=== PATIENT | female | born 1940 | race African-American/Black ===

== ENCOUNTER 2017-03-09 11:19 | Inpatient (IN) ==
[2017-03-09 15:55] LABS: Basophils % 0.1 % (0.0-0.8); Eosinophils # 0.1 10*3/uL (0.0-0.87); Eosinophils % 0.6 % (0.00-10.9); Hematocrit 20.3 VOL% (35.7-47.0); Immature Granulocytes % 0.8 %; Lymphocytes # 1.6 10*3/uL (1.4-4.0); Lymphocytes % 13.2 % (21.3-54.2); Mean Corpuscular Hemoglobin 30 PG (27-34); Mean Corpuscular Volume 95.3 FL (87-102); Mean Platelet Volume 10.6 FL (9.6-12.0); Monocytes % 8.5 % (1.7-12.7); Neutrophils # 9.3 10*3/uL (1.4-7.4); Neutrophils % 76.8 % (38.7-73.9); Platelet Count 422 T/CUMM (130-400); Red Blood Count 2.13 MC/CUMM (3.8-5.5); Red Cell Distribution Width 15.5 % (9.3-17.3); White Blood Count 12.1 T/CUMM (4-12)
[2017-03-09 16:01] LABS: Hemoglobin 6.3 GM/DL (12.0-16.0)
[2017-03-09 16:12] LABS: Alanine Aminotransferase 19 U/L (13-56); Albumin 2.7 G/DL (3.4-5.0); Alkaline Phosphatase 85 U/L (45-117); Aspartate Amino Transferase 17 U/L (0-37); Bilirubin,Total < 0.39 MG/DL (0.2-1.0); Blood Urea Nitrogen 23 MG/DL (7-18); Calcium 8.9 MG/DL (8.5-10.1); Glucose 92 MG/DL (74-106); Osmolality,Calculated 282.4 MOS/KG (273-304); Potassium 4.9 MMOL/L (3.5-5.1); Sodium 140 MMOL/L (136-145); Total Protein 7.9 G/DL (6.4-8.3)
[2017-03-09] MEDS ORDERED: DOCUSATE SODIUM 100 MG CAPSULE PO PRN (17:48)
[2017-03-09] MEDS ORDERED: GLUCAGON 1 MG VIAL IM PRN (17:48)
[2017-03-09] MEDS ORDERED: ONDANSETRON 4 MG/2 ML VIAL IV PRN (17:48)
[2017-03-09] MEDS ORDERED: DEXTROSE 50% 25 GM/50 ML VIAL IV PRN (17:48)
[2017-03-09] MEDS ORDERED: SODIUM CHLORIDE 0.9% 1,000 ML IV PRN (20:20)
[2017-03-09] MEDS: INSULIN REGULAR 100 UNIT/ML SUBCUT SCH (21:59)
[2017-03-09] MEDS: ACETAMINOPHEN 325 MG TABLET PO PRN (22:23)
[2017-03-09] MEDS: cefTRIAXone 1,000 MG in SYRINGE 1 EACH IV SCH (22:24)
[2017-03-10 08:28] LABS: Basophils % 0.2 % (0.0-0.8); Eosinophils # 0.1 10*3/uL (0.0-0.87); Eosinophils % 0.8 % (0.00-10.9); Hematocrit 23.6 VOL% (35.7-47.0); Immature Granulocytes % 0.7 %; Immature Granulocytes Absolute 0.07 #; Lymphocytes # 1.8 10*3/uL (1.4-4.0); Lymphocytes % 16.5 % (21.3-54.2); Mean Corpuscular HGB Conc 32.6 GM/DL (32-36); Mean Corpuscular Hemoglobin 30 PG (27-34); Mean Corpuscular Volume 90.8 FL (87-102); Mean Platelet Volume 10.6 FL (9.6-12.0); Monocytes # 1.1 10*3/uL (0.11-0.8); Monocytes % 9.8 % (1.7-12.7); Neutrophils # 7.7 10*3/uL (1.4-7.4); Platelet Count 355 T/CUMM (130-400); Red Cell Distribution Width 16.3 % (9.3-17.3); White Blood Count 10.7 T/CUMM (4-12)
[2017-03-10] MEDS ORDERED: ceFAZolin 2,000 MG in PREMIX 1 EACH IV ONE (08:32)
[2017-03-10] MEDS ORDERED: CHLORHEXIDINE 4% SOLN 118 ML BOTTLE TOP ONE (08:41)
[2017-03-10 08:50] LABS: Hemoglobin 7.7 GM/DL (12.0-16.0)
[2017-03-10 08:51] LABS: Calcium 8.1 MG/DL (8.5-10.1); Osmolality,Calculated 281.1 MOS/KG (273-304); Potassium 4.6 MMOL/L (3.5-5.1)
[2017-03-10 08:52] LABS: Calcium 8.2 MG/DL (8.5-10.1); Magnesium 1.7 MG/DL (1.8-2.4); Osmolality,Calculated 282.1 MOS/KG (273-304); Potassium 4.6 MMOL/L (3.5-5.1)
[2017-03-10 09:51] LABS: INR 1.1; PT Patient Result 11.2 SECS; Partial Thromboplastin Time 30.8 SECS (0-40)
[2017-03-10] MEDS: ASPIRIN EC 325 MG TABLET PO SCH (10:25)
[2017-03-10] MEDS: SUCRALFATE 1 GM TABLET PO SCH ×3 (10:28→17:23)
[2017-03-10] MEDS: INSULIN REGULAR 100 UNIT/ML SUBCUT SCH ×4 (10:29→21:09)
[2017-03-10] MEDS: PANTOPRAZOLE 40 MG TABLET PO SCH (10:31)
[2017-03-10] MEDS: BACITRACIN OINT 0.9 GM PACK TOP SCH (16:30)
[2017-03-10] MEDS: ACETAMINOPHEN 325 MG TABLET PO PRN (17:24)
[2017-03-10] MEDS: cefTRIAXone 1,000 MG in SYRINGE 1 EACH IV SCH (21:05)
[2017-03-11 06:02] LABS: Basophils % 0.2 % (0.0-0.8); Eosinophils # 0.1 10*3/uL (0.0-0.87); Eosinophils % 1.1 % (0.00-10.9); Hematocrit 24.2 VOL% (35.7-47.0); Hemoglobin 7.7 GM/DL (12.0-16.0); Immature Granulocytes % 0.6 %; Immature Granulocytes Absolute 0.06 #; Lymphocytes # 1.9 10*3/uL (1.4-4.0); Mean Corpuscular HGB Conc 31.8 GM/DL (32-36); Mean Corpuscular Hemoglobin 29 PG (27-34); Monocytes # 0.9 10*3/uL (0.11-0.8); Monocytes % 9.1 % (1.7-12.7); Neutrophils # 6.6 10*3/uL (1.4-7.4); Platelet Count 347 T/CUMM (130-400); Red Blood Count 2.63 MC/CUMM (3.8-5.5); White Blood Count 9.6 T/CUMM (4-12)
[2017-03-11 06:29] LABS: Calcium 8.2 MG/DL (8.5-10.1); Magnesium 1.7 MG/DL (1.8-2.4); Potassium 4.7 MMOL/L (3.5-5.1)
[2017-03-11] MEDS ORDERED: ceFAZolin 2,000 MG in PREMIX 1 EACH IV ONE (07:00)
[2017-03-11] MEDS: INSULIN REGULAR 100 UNIT/ML SUBCUT SCH ×4 (07:53→21:25)
[2017-03-11] MEDS: BACITRACIN OINT 0.9 GM PACK TOP SCH (10:12)
[2017-03-11] MEDS: ASPIRIN EC 325 MG TABLET PO SCH (10:12)
[2017-03-11] MEDS: PANTOPRAZOLE 40 MG TABLET PO SCH (10:12)
[2017-03-11] MEDS: SUCRALFATE 1 GM TABLET PO SCH ×3 (10:12→17:08)
[2017-03-11] MEDS ORDERED: SKIN HEALING OINT (AQUAPHOR) 50 GM TUBE TOP PRN (11:28)
[2017-03-11] MEDS ORDERED: CHLORHEXIDINE 4% SOLN 118 ML BOTTLE TOP ONE (11:28)
[2017-03-11] MEDS ORDERED: HYDROmorphone 2 MG/1 ML VIAL IV PRN (11:30)
[2017-03-11] MEDS ORDERED: fentaNYL 100 MCG/2 ML VIAL ONE (12:10)
[2017-03-11] MEDS ORDERED: SEVOFLURANE 1 UNIT/15 MINUTE INH ONE (12:10)
[2017-03-11] MEDS ORDERED: MIDAZOLAM 2 MG/2 ML VIAL ONE (12:10)
[2017-03-11] MEDS ORDERED: ONDANSETRON 4 MG/2 ML VIAL ONE (12:10)
[2017-03-11] MEDS ORDERED: PROPOFOL 200 MG/20 ML VIAL IV ONE (12:10)
[2017-03-11] MEDS ORDERED: MAGNESIUM SULF RIDER 2 GM in PREMIX 1 EACH IV ONE (14:17)
[2017-03-11] MEDS ORDERED: ZINC OXIDE PASTE 113 GM TUBE TOP PRN (14:20)
[2017-03-11] MEDS: SODIUM CHLORIDE 0.9% 1,000 ML IV SCH (14:51)
[2017-03-11] MEDS: ACETAMINOPHEN 325 MG TABLET PO PRN (17:08)
[2017-03-11] MEDS: ceFAZolin 2,000 MG in PREMIX 1 EACH IV SCH (17:09)
[2017-03-11] MEDS: oxyCODONE/ACETAMINOPHEN 5-325 MG TABLET PO PRN (21:26)
[2017-03-11] MEDS: ACETYLCYSTEINE 600 MG CAPSULE PO SCH (21:26)
[2017-03-11] MEDS: DOCUSATE SODIUM 100 MG CAPSULE PO SCH (21:26)
[2017-03-11] MEDS: cefTRIAXone 1,000 MG in SYRINGE 1 EACH IV SCH (21:27)
[2017-03-12] MEDS: SODIUM CHLORIDE 0.9% 1,000 ML IV SCH (00:10)
[2017-03-12] MEDS ORDERED: ceFAZolin 2,000 MG in PREMIX 1 EACH IV SCH (04:30)
[2017-03-12] MEDS: ceFAZolin 2,000 MG in PREMIX 1 EACH IV SCH (04:41)
[2017-03-12 05:47] LABS: Basophils % 0.2 % (0.0-0.8); Eosinophils # 0.2 10*3/uL (0.0-0.87); Eosinophils % 1.7 % (0.00-10.9); Hematocrit 24.7 VOL% (35.7-47.0); Hemoglobin 7.7 GM/DL (12.0-16.0); Immature Granulocytes % 0.7 %; Immature Granulocytes Absolute 0.06 #; Lymphocytes # 1.5 10*3/uL (1.4-4.0); Lymphocytes % 17.5 % (21.3-54.2); Mean Corpuscular HGB Conc 31.2 GM/DL (32-36); Mean Corpuscular Hemoglobin 29 PG (27-34); Mean Corpuscular Volume 93.9 FL (87-102); Mean Platelet Volume 9.8 FL (9.6-12.0); Monocytes # 0.7 10*3/uL (0.11-0.8); Monocytes % 8.2 % (1.7-12.7); Neutrophils # 6.2 10*3/uL (1.4-7.4); Neutrophils % 71.7 % (38.7-73.9); Platelet Count 318 T/CUMM (130-400); Red Blood Count 2.63 MC/CUMM (3.8-5.5); Red Cell Distribution Width 15.7 % (9.3-17.3); White Blood Count 8.7 T/CUMM (4-12)
[2017-03-12 06:20] LABS: Calcium 7.7 MG/DL (8.5-10.1); Magnesium 2.4 MG/DL (1.8-2.4); Potassium 4.7 MMOL/L (3.5-5.1)
[2017-03-12] MEDS: INSULIN REGULAR 100 UNIT/ML SUBCUT SCH ×2 (07:13→12:08)
[2017-03-12] MEDS ORDERED: ENOXAPARIN 40 MG/0.4 ML SYRINGE SUBCUT SCH (08:00)
[2017-03-12 08:32] VITALS: BP 138/58
[2017-03-12] MEDS ORDERED: GLIMEPIRIDE 2 MG TABLET PO SCH (09:00)
[2017-03-12] MEDS ORDERED: LISINOPRIL 20 MG TABLET PO SCH (09:00)
[2017-03-12] MEDS: SUCRALFATE 1 GM TABLET PO SCH ×2 (09:58→11:59)
[2017-03-12] MEDS: ASPIRIN EC 325 MG TABLET PO SCH (09:59)
[2017-03-12] MEDS: ACETYLCYSTEINE 600 MG CAPSULE PO SCH (09:59)
[2017-03-12] MEDS: PANTOPRAZOLE 40 MG TABLET PO SCH (09:59)
[2017-03-12] MEDS: DOCUSATE SODIUM 100 MG CAPSULE PO SCH (09:59)
[2017-03-12] MEDS: BACITRACIN OINT 0.9 GM PACK TOP SCH (14:30)
[2017-03-12] MEDS: oxyCODONE/ACETAMINOPHEN 5-325 MG TABLET PO PRN (14:53)
== END 2017-03-12 15:15 | disposition swing bed (61) | DRG 300 ==
LOC: N.ED 11:19 → N.EDINP 16:56 → N.3E 19:31
PROVIDERS: ADMIT Internal Medicine; ATTEND Internal Medicine

== ENCOUNTER 2018-12-11 20:45 | Inpatient (IN) ==
[2018-12-11 22:19] LABS: Basophils % 0.2 % (0.0-0.8); Hematocrit 28.2 VOL% (35.7-47.0); Hemoglobin 8.5 GM/DL (12.0-16.0); Immature Granulocytes % 1.1 %; Immature Granulocytes Absolute 0.18 #; Lymphocytes # 0.5 10*3/uL (1.4-4.0); Lymphocytes % 2.9 % (21.3-54.2); Mean Corpuscular HGB Conc 30.1 GM/DL (32-36); Mean Corpuscular Volume 95.6 FL (87-102); Mean Platelet Volume 10.7 FL (9.6-12.0); Monocytes % 4.8 % (1.7-12.7); Platelet Count 197 T/CUMM (130-400); Red Blood Count 2.95 MC/CUMM (3.8-5.5); Red Cell Distribution Width 16.1 % (9.3-17.3); White Blood Count 16.3 T/CUMM (4-12)
[2018-12-11 22:40] LABS: Alanine Aminotransferase 14 U/L (13-56); Albumin 2.9 G/DL (3.4-5.0); Alkaline Phosphatase 101 U/L (45-117); Aspartate Amino Transferase 30 U/L (0-37); Blood Urea Nitrogen 25 MG/DL (7-18); Calcium 8.5 MG/DL (8.5-10.1); Estimated Glom Filtration Rate 33 ML/MIN; Glucose 137 MG/DL (74-106); Osmolality,Calculated 284.4 MOS/KG (273-304); Total Protein 7.7 G/DL (6.4-8.3)
[2018-12-11] MEDS ORDERED: VANCOMYCIN INJ 1,000 MG in SODIUM CHLORIDE 0.9% 250 ML IV STA ×2 (23:11→23:15)
[2018-12-11] MEDS ORDERED: CEFEPIME 2,000 MG in SODIUM CHLORIDE 0.9% 100 ML IV STA ×2 (23:11→23:15)
[2018-12-11] MEDS ORDERED: SODIUM CHLORIDE 0.9% 1,000 ML IV STA (23:12)
[2018-12-11 23:24] LABS: Anisocytosis 1+; Eosinophils 2 % (0-10); Hypochromasia 1+; Lymphocytes 2 % (20-55); Macrocytosis Slight; Microcytosis Slight; Platelet Estimate Adequate; Polychromasia Slight; Segmented Neutrophils 91 % (50-85); Total Cells Counted 100
[2018-12-11] MEDS ORDERED: ONDANSETRON 4 MG/2 ML VIAL IV STA (23:28)
[2018-12-12] MEDS ORDERED: diphenhydrAMINE CAP 25 MG CAPSULE PO PRN (00:27)
[2018-12-12] MEDS ORDERED: GLUCAGON 1 MG VIAL IM PRN (00:27)
[2018-12-12] MEDS ORDERED: DEXTROSE 50% 25 GM/50 ML VIAL IV PRN (00:27)
[2018-12-12] MEDS ORDERED: ACETAMINOPHEN 325 MG TABLET PO PRN (00:27)
[2018-12-12] MEDS ORDERED: NICOTINE 21 MG/24 HR PATCH TRANSDERM PRN (00:27)
[2018-12-12] MEDS ORDERED: ONDANSETRON 4 MG/2 ML VIAL IV PRN (00:27)
[2018-12-12] MEDS ORDERED: PROMETHAZINE 25 MG/1 ML VIAL IM PRN (00:27)
[2018-12-12] MEDS ORDERED: MORPHINE 4 MG/1 ML VIAL IV PRN (00:27)
[2018-12-12] MEDS ORDERED: SODIUM CHLORIDE 0.9% 1,000 ML IV SCH (00:30)
[2018-12-12] MEDS ORDERED: PIPERACILLIN/TAZOBACTAM 3,375 MG in SODIUM CHLORIDE 0.9% 100 ML IV SCH (01:30)
[2018-12-12 01:54] LABS: Basophils % 0.2 % (0.0-0.8); Hemoglobin 8.3 GM/DL (12.0-16.0); Immature Granulocytes % 1.5 %; Immature Granulocytes Absolute 0.26 #; Lymphocytes # 0.5 10*3/uL (1.4-4.0); Lymphocytes % 2.8 % (21.3-54.2); Mean Corpuscular HGB Conc 29.6 GM/DL (32-36); Mean Corpuscular Volume 98.6 FL (87-102); Mean Platelet Volume 11.7 FL (9.6-12.0); Neutrophils % 91.5 % (38.7-73.9); Platelet Count 142 T/CUMM (130-400); Red Blood Count 2.84 MC/CUMM (3.8-5.5); Red Cell Distribution Width 16.2 % (9.3-17.3); White Blood Count 17.9 T/CUMM (4-12)
[2018-12-12 02:12] LABS: Albumin 2.7 G/DL (3.4-5.0); Bilirubin,Direct 0.82 MG/DL (0.0-0.20); Bilirubin,Indirect 0.8 MG/DL (0.0-1.0); Bilirubin,Total 1.6 MG/DL (0.2-1.0); Total Protein 7.4 G/DL (6.4-8.3)
[2018-12-12 02:13] LABS: Risk Ratio 2.36; VLDL CHOLESTEROL 15.4 MG/DL
[2018-12-12 02:35] LABS: Albumin 2.7 G/DL (3.4-5.0); Bilirubin,Total 1.8 MG/DL (0.2-1.0); Calcium 7.9 MG/DL (8.5-10.1); Total Protein 7.3 G/DL (6.4-8.3)
[2018-12-12 02:41] LABS: Anisocytosis 1+; Hypochromasia 1+; Lymphocytes 2 % (20-55); Microcytosis 1+; Segmented Neutrophils 95 % (50-85); Total Cells Counted 100
[2018-12-12 02:42] LABS: Acanthocytes Few; Ovalocytes Slight; Platelet Estimate Adequate
[2018-12-12] MEDS: INSULIN REGULAR 100 UNIT/ML SUBCUT SCH ×5 (02:43→20:28)
[2018-12-12] MEDS ORDERED: IBUPROFEN 400 MG TABLET PO PRN (03:26)
[2018-12-12 03:45] LABS: Hepatitis B Core IgM Quant 0.09 Index; Hepatitis B Surface Ag Quant < 0.10 Index; Hepatitis B Surface Ag Result Negative (Negative); Hepatitis C Virus Ab Quant 0.09 Index; Hepatitis C Virus Ab Result Negative (Negative)
[2018-12-12 06:48] LABS: Amorphous Crystals,Urine Few /HPF (Few); Apearance,Urine CLOUDY (Clear); Bilirubin,Urine Negative (Negative); Blood, Urine Large mg/dL (Negative); Glucose,Urine (UA) Negative (Negative); Ketones,Urine 5 mg/dL (Negative); Mucus,Urine Occasional /LPF (Occasional); Nitrite,Urine Negative (Negative); Protein,Urine 100 MG/DL; RBC,Urine 495 /HPF (0-4); Urine Color Amber (Yellow); Urine Specific Gravity 1.017 (1.001-1.035); Urine Urobilinogen < 2.0 EU/DL (0.2-1.0); WBC,Urine 125 /HPF (0-6)
[2018-12-12] MEDS ORDERED: LACTATED RINGERS 1,000 ML IV ONE (08:49)
[2018-12-12] MEDS ORDERED: SKIN HEALING OINT (AQUAPHOR) 50 GM TUBE TOP PRN (09:18)
[2018-12-12] MEDS: SODIUM BICARB INJ 50 MEQ in SODIUM CHLORIDE 0.45% 1,000 ML IV SCH ×2 (11:06→16:00)
[2018-12-12] MEDS: ENOXAPARIN 30 MG/0.3 ML SYRINGE SUBCUT SCH (12:45)
[2018-12-12] MEDS: CEFEPIME 1,000 MG in SODIUM CHLORIDE 0.9% 100 ML IV SCH ×2 (15:10→22:43)
[2018-12-13] MEDS: SODIUM BICARB INJ 50 MEQ in SODIUM CHLORIDE 0.45% 1,000 ML IV SCH ×2 (05:01→08:06)
[2018-12-13 06:12] LABS: Calcium 8.3 MG/DL (8.5-10.1); Osmolality,Calculated 289.3 MOS/KG (273-304)
[2018-12-13 06:16] LABS: Albumin 2.3 G/DL (3.4-5.0); Bilirubin,Direct 0.28 MG/DL (0.0-0.20); Bilirubin,Indirect 0.9 MG/DL (0.0-1.0); Bilirubin,Total 1.2 MG/DL (0.2-1.0); Total Protein 6.7 G/DL (6.4-8.3)
[2018-12-13] MEDS: CEFEPIME 1,000 MG in SODIUM CHLORIDE 0.9% 100 ML IV SCH ×2 (07:11→14:01)
[2018-12-13 07:35] LABS: Basophils % 0.2 % (0.0-0.8); Eosinophils % 0.1 % (0.00-10.9); Hematocrit 26.3 VOL% (35.7-47.0); Hemoglobin 8.1 GM/DL (12.0-16.0); Immature Granulocytes % 1.5 %; Immature Granulocytes Absolute 0.33 #; Lymphocytes # 0.8 10*3/uL (1.4-4.0); Lymphocytes % 3.8 % (21.3-54.2); Mean Corpuscular HGB Conc 30.8 GM/DL (32-36); Mean Corpuscular Volume 94.6 FL (87-102); Mean Platelet Volume 10.9 FL (9.6-12.0); Monocytes % 6.6 % (1.7-12.7); Neutrophils % 87.8 % (38.7-73.9); Platelet Count 173 T/CUMM (130-400); Red Blood Count 2.78 MC/CUMM (3.8-5.5); Red Cell Distribution Width 16.3 % (9.3-17.3); White Blood Count 21.5 T/CUMM (4-12)
[2018-12-13 07:49] LABS: Acanthocytes Few; Anisocytosis 1+; Band Neutrophils 2 % (0-10); Hypochromasia 1+; Lymphocytes 3 % (20-55); Microcytosis 1+; Segmented Neutrophils 89 % (50-85); Total Cells Counted 100
[2018-12-13 07:50] LABS: Ovalocytes Slight; Platelet Estimate Adequate
[2018-12-13] MEDS: INSULIN REGULAR 100 UNIT/ML SUBCUT SCH ×2 (08:07→12:11)
[2018-12-13] MEDS: ENOXAPARIN 30 MG/0.3 ML SYRINGE SUBCUT SCH (12:20)
[2018-12-13 12:30] VITALS: BP 147/84
[2018-12-14] MEDS ORDERED: VANCOMYCIN INJ 1,000 MG in SODIUM CHLORIDE 0.9% 250 ML IV SCH (00:30)
== END 2018-12-13 15:14 | DRG 872 ==
LOC: EDUNIT# → N.ED 20:45 → N.EDINP 12-12 00:28 → N.3E 12-12 01:25
PROVIDERS: ADMIT Internal Medicine; ATTEND Internal Medicine

== ENCOUNTER 2019-09-02 17:07 | Inpatient (IN) ==
[2019-09-02] MEDS ORDERED: ONDANSETRON 4 MG/2 ML VIAL IV ONE (17:23)
[2019-09-02] MEDS ORDERED: ALBUTEROL 2.5 MG/3 ML NEB RESP TX STA (17:23)
[2019-09-02] MEDS ORDERED: ACETAMINOPHEN 325 MG TABLET PO ONE (17:23)
[2019-09-02] MEDS ORDERED: FUROSEMIDE 40 MG/4 ML VIAL IV STA (17:35)
[2019-09-02 17:47] LABS: Hematocrit 28.8 VOL% (35.7-47.0); Hemoglobin 8.2 GM/DL (12.0-16.0); Immature Granulocytes % 0.8 %; Immature Granulocytes Absolute 0.03 #; Mean Corpuscular HGB Conc 28.5 GM/DL (32-36)
[2019-09-02 17:56] LABS: INR 1.8; PT Patient Result 18.9 SECS (9.8-11.9)
[2019-09-02 18:02] LABS: Albumin 2.9 G/DL (3.4-5.0); Bilirubin,Total 1.9 MG/DL (0.2-1.0); Calcium 8.3 MG/DL (8.5-10.1); Osmolality,Calculated 283.4 MOS/KG (273-304); Total Protein 7.6 G/DL (6.4-8.3)
[2019-09-02 18:06] LABS: Basophils % 0.5 % (0.0-0.8); Lymphocytes # 0.2 10*3/uL (1.4-4.0); Lymphocytes % 5.4 % (21.3-54.2); Mean Corpuscular Volume 86.5 FL (87-102); Monocytes % 3.1 % (1.7-12.7); Neutrophils % 90.2 % (38.7-73.9); Platelet Count 134 T/CUMM (130-400); Red Blood Count 3.33 MC/CUMM (3.8-5.5); Red Cell Distribution Width 19.9 % (9.3-17.3); Troponin I 1.3 NG/ML (0.00-0.045); White Blood Count 3.9 T/CUMM (4-12)
[2019-09-02 18:08] LABS: Apearance,Urine CLOUDY (Clear); Bacteria,Urine Many /HPF (Few); Bilirubin,Urine Negative (Negative); Blood, Urine Small mg/dL (Negative); Glucose,Urine (UA) Negative (Negative); Ketones,Urine Negative (Negative); Nitrite,Urine Negative (Negative); Protein,Urine 100 MG/DL; Squamous Epithelial Cell,Urine Few /HPF (0-10); Urine Color Yellow (Yellow); Urine Specific Gravity 1.018 (1.001-1.035)
[2019-09-02 18:18] LABS: ABG Base Excess -8.7 MMOL/L (-2.5-2.5); ABG HCO3 17.1 MMOL/L (20-26); ABG PCO2 34.2 MM HG (35-48); ABG PH 7.303 (7.35-7.45); ABG PO2 51.6 MM HG (80-95)
[2019-09-02] MEDS ORDERED: SODIUM CHLORIDE 0.9% 1,000 ML IV STA (18:20)
[2019-09-02] MEDS ORDERED: PIPERACILLIN/TAZOBACTAM 3,375 MG in SODIUM CHLORIDE 0.9% 100 ML IV STA (18:21)
[2019-09-02] MEDS ORDERED: VANCOMYCIN INJ 1,000 MG in SODIUM CHLORIDE 0.9% 250 ML IV STA (18:21)
[2019-09-02 18:23] LABS: Band Neutrophils 8 % (0-10); Hypochromasia 2+; Lymphocytes 7 % (20-55); Metamyelocytes 1 %; Myelocytes 3 %; Segmented Neutrophils 70 % (50-85); Total Cells Counted 100
[2019-09-02 18:24] LABS: Anisocytosis 1+; Burr Cells Few; Ovalocytes Few; Polychromasia Few; Schistocytes Few
[2019-09-02 18:25] LABS: Platelet Estimate Adequate
[2019-09-02] MEDS ORDERED: DEXTROSE 50% 25 GM/50 ML VIAL IV STA (18:36)
[2019-09-02] MEDS ORDERED: DEXTROSE 50% 25 GM/50 ML SYRINGE IV ONE (18:47)
[2019-09-02] MEDS ORDERED: SODIUM CHLORIDE 0.9% 500 ML IV STA (20:38)
[2019-09-03] MEDS ORDERED: EPINEPHrine 1 MG/10 ML SYRINGE ONE (00:06)
[2019-09-03] MEDS ORDERED: CALCIUM CHLORIDE 1,000 MG/10 ML SYRINGE IV ONE (00:06)
[2019-09-03] MEDS ORDERED: SODIUM BICARBONATE 50 MEQ/50 ML SYRINGE IV ONE (00:06)
[2019-09-03] MEDS ORDERED: DEXTROSE 50% 25 GM/50 ML SYRINGE IV ONE ×2 (00:06→00:42)
[2019-09-03] MEDS ORDERED: ONDANSETRON 4 MG/2 ML VIAL IV PRN (00:39)
[2019-09-03] MEDS ORDERED: PROMETHAZINE 25 MG/1 ML VIAL IM PRN (00:39)
[2019-09-03] MEDS ORDERED: DOPamine 800 MG/250 ML PREMIX IV SCH (00:39)
[2019-09-03] MEDS ORDERED: ALBUTEROL 2.5 MG/3 ML NEB RESP TX PRN (00:39)
[2019-09-03] MEDS ORDERED: DOBUTamine 500 MG/250 ML PREMIX IV ONE (00:49)
[2019-09-03] MEDS ORDERED: DOBUTamine 500 MG/250 ML PREMIX IV SCH (01:00)
[2019-09-03] MEDS ORDERED: ENOXAPARIN 40 MG/0.4 ML SYRINGE SUBCUT SCH (01:00)
[2019-09-03] MEDS ORDERED: DOBUTamine 500 MG/250 ML PREMIX IV PRN (01:07)
[2019-09-03] MEDS: PANTOPRAZOLE 40 MG VIAL IV SCH ×2 (02:06→09:36)
[2019-09-03] MEDS: FUROSEMIDE 40 MG/4 ML VIAL IV SCH ×4 (02:21→20:09)
[2019-09-03] MEDS: LINEZOLID INJ 600 MG in PREMIX 1 EACH IV SCH ×2 (02:25→16:06)
[2019-09-03 05:09] LABS: ABG Base Excess -8.8 MMOL/L (-2.5-2.5); ABG HCO3 17.2 MMOL/L (20-26); ABG PH 7.349 (7.35-7.45); ABG TCO2 15.1 MMOL/L (23-27)
[2019-09-03 05:32] LABS: Basophils % 0.2 % (0.0-0.8); Eosinophils % 0.2 % (0.00-10.9); Hematocrit 24.3 VOL% (35.7-47.0); Hemoglobin 6.9 GM/DL (12.0-16.0); Immature Granulocytes % 1.3 %; Immature Granulocytes Absolute 0.07 #; Lymphocytes # 0.2 10*3/uL (1.4-4.0); Lymphocytes % 3.6 % (21.3-54.2); Mean Corpuscular HGB Conc 28.4 GM/DL (32-36); Mean Platelet Volume 11.8 FL (9.6-12.0); Neutrophils % 90.7 % (38.7-73.9); Platelet Count 110 T/CUMM (130-400); Red Blood Count 2.76 MC/CUMM (3.8-5.5); White Blood Count 5.3 T/CUMM (4-12)
[2019-09-03 05:37] LABS: Calcium 7.9 MG/DL (8.5-10.1); Osmolality,Calculated 295.1 MOS/KG (273-304)
[2019-09-03 05:45] LABS: INR 2.5; PT Patient Result 25.6 SECS (9.8-11.9)
[2019-09-03] MEDS ORDERED: NOREPINEPHRINE 8 MG in SODIUM CHLORIDE 0.9% 242 ML IV PRN ×2 (06:22→16:33)
[2019-09-03 06:44] LABS: Anisocytosis 2+; Band Neutrophils 40 % (0-10); Hypochromasia 2+; Metamyelocytes 10 %; Segmented Neutrophils 49 % (50-85); Total Cells Counted 100
[2019-09-03 06:45] LABS: Platelet Estimate Adequate; Polychromasia Slight; Schistocytes Few
[2019-09-03] MEDS: PHENYLEPHRINE DRIP 40 MG/250 ML PREMIX IV PRN ×3 (09:37→23:06)
[2019-09-03] MEDS: PIPERACILLIN/TAZOBACTAM 3,375 MG in SODIUM CHLORIDE 0.9% 100 ML IV SCH ×2 (09:55→19:59)
[2019-09-03] MEDS ORDERED: SODIUM CHLORIDE 0.9% 1,000 ML IV PRN (12:15)
[2019-09-03 18:46] LABS: Calcium 8.3 MG/DL (8.5-10.1); Osmolality,Calculated 282.7 MOS/KG (273-304)
[2019-09-03] MEDS: DEXTROSE 50% 25 GM/50 ML SYRINGE IV PRN ×2 (19:15→23:12)
[2019-09-03] MEDS ORDERED: DEXTROSE 10% 250 ML BAG IV PRN (19:45)
[2019-09-03] MEDS ORDERED: GLUCAGON 1 MG VIAL IM PRN (19:45)
[2019-09-03 22:48] VITALS: BP 103/30
== END 2019-09-03 23:28 | disposition expired | DRG 871 ==
LOC: EDUNIT# → EDBD → N.ED 17:07 → N.EDINP 21:28 → SUATTDRO 21:28 → N.ICU 09-03 00:13
PROVIDERS: ADMIT Internal Medicine; ATTEND Internal Medicine